=== PATIENT | male | born 1965 | race African-American/Black ===

== ENCOUNTER 2017-07-09 13:40 | Emergency (ER) | payer BC ==
[~2017-07-09] VITALS: Ht 180.3 cm; Wt 112.7 kg
[2017-07-09 14:13] VITALS: BP 115/78
== END 2017-07-09 14:27 | disposition home or self-care (01) ==
LOC: ED 14:15
DX: J45.31 Mild persistent asthma with (acute) exacerbation (principal); J98.01 Acute bronchospasm; J01.00 Acute maxillary sinusitis, unspecified; J01.10 Acute frontal sinusitis, unspecified
CPT/HCPCS: 99283